=== PATIENT | female | born 1990 | race Caucasian/White ===

== ENCOUNTER 2019-03-08 16:06 | Inpatient (IN) | payer BC ==
[2019-03-08] MEDS ORDERED: Lidocaine 1% 30 ML SDV INJECT PRN (16:42)
[2019-03-08] MEDS ORDERED: Ondansetron 4 MG/2 ML SDV IV PRN (16:42)
[2019-03-08] MEDS ORDERED: Sodium Chloride 0.9% 10 ML Syringe FLUSH PRN (16:42)
[2019-03-08] MEDS ORDERED: Misoprostol 400 MCG (4 X 100 MCG TAB) RECTAL PRN (16:42)
[2019-03-08] MEDS ORDERED: Carboprost Tromethamine 250 MCG/1 ML Amp IM PRN (16:42)
[2019-03-08] MEDS ORDERED: Lactated Ringers 1,000 ML IV ONE (16:42)
[2019-03-08] MEDS ORDERED: Methylergonovine 0.2 MG/1 ML Amp IM PRN (16:42)
[2019-03-08] MEDS ORDERED: Acetaminophen 325 MG Tab PO PRN (16:42)
[2019-03-08] MEDS ORDERED: fentaNYL 100 MCG/2 ML SDV IVPUSH PRN (16:42)
[2019-03-08] MEDS ORDERED: Tranexamic Acid 1,000 MG in Sodium Chloride 0.9% 100 ML IV PRN (16:42)
[2019-03-08] MEDS ORDERED: Oxytocin/Normal Saline 30 UNIT/500 ML BAG IV SCH (16:45)
[2019-03-08] MEDS ORDERED: Nalbuphine 10 MG/1 ML Vial IM ONE (16:52)
[2019-03-08] MEDS: Lactated Ringers 1,000 ML IV SCH ×2 (18:19→18:46)
[2019-03-08] MEDS ORDERED: fentaNYL 100 MCG/2 ML SDV ONE (18:36)
[2019-03-08] MEDS ORDERED: EPINEPHrine 1 MG/1 ML Amp ONE (18:37)
--- NOTE | 2019-03-08 19:06 | PCM.PRNOTE ---
- Free Text/Narrative Note: Requested to provide analgesia to full term patient in severe pain. Upon entering the room, patient is sitting on edge of bed complaining of severe abdominal/pelvic pain and discomfort. Procedure was discussed with patient including adverse outcomes and expectations. Pt consented to analgesia, SAB/ IT. Pt placed into a proper sitting position. Landmarks for SAB/IT were identified and marked. Hands were washed and appropriate PPE was applied. Back was prepped with betadine x3. A sterile, transparent, fenestrated drape was applied. Excess betadine was removed. Using 3 mL of a 1% lidocaine solution , a skin wheel was placed at the L2/L3 interspace. A 24 ga (4 inch) Pencan spinal needle was inserted until positive for CSF. Negative for heme or paresthesias. Injected fentanyl 30 mcg, sufentanil 25 mcg, and 7.5 mg of a 0.75 % bupivacaine solution with an epi wash. Pt was placed left lateral position for approximately 20 minutes. There were zero complications or adverse outcomes. Will continue to monitor. Procedure Date & Time: 03/08/19 [id number]
[2019-03-08] MEDS ORDERED: Simethicone 80 MG Tab.Chew PO PRN (20:34)
[2019-03-08] MEDS ORDERED: Benzocaine/Menthol 20%-0.5% Spray 56 GM Canister TOP PRN (20:34)
--- NOTE | 2019-03-08 22:29 | HP ---
CHIEF COMPLAINT: Spontaneous rupture of membranes. HISTORY OF PRESENT ILLNESS: This is a 28-year-old, 4, para 1-0-2-1, currently at 38-3/7 weeks of her intrauterine based on last menstrual period, presents to Labor and Delivery reporting that she had just awoken from a nap and heard a pop, and when she got up to move around had continuous leakage of fluid and increase in the force and frequency of contractions that she had been having since yesterday. Time of rupture was at 3 o'clock in the afternoon and fluid was clear. Shortly thereafter regular stronger contractions ensued. She denies any vaginal bleeding. She has had good movement. No chest pain or shortness of breath. No headaches. No blurry vision. No change in her edema. No signs or symptoms of any illness or other problems since her last office visit last week. history: Nausea and vomiting in the first trimester. Spotting in the first trimester. History of miscarriage x2. labs: Blood type A positive, antibody screen negative, rubella immune, syphilis serology nonreactive, hepatitis B negative, HIV negative, gonorrhea and chlamydia negative, TSH 1.4, hepatitis C negative, wet prep was negative, group B strep negative, and glucose tolerance test normal at 100. Last hemoglobin 11.8 on 12/18/2018 and platelets 221. PAST MEDICAL HISTORY: 1. Prior abnormal Pap smear in 2002, negative followup since then. 2. History of asymptomatic PVCs. 3. History of needing bilateral hearing aid since age 4 due to a history of recurrent ear infections. 4. Chickenpox at an age 4. 5. Influenza A in March of 2018. 6. History of spontaneous x2. 7. History of malignant teratoma in 2004 followed by right oophorectomy. PAST SURGICAL HISTORY: 1. Right oophorectomy 05/05/2004. 2. Dilatation and curettage March 19, 2018. 3. Tonsillectomy at age 3. 4. [place] teeth extraction. FAMILY HISTORY: Mother is alive and well. Father is alive and had a heart attack at age 41 and has elevated cholesterol and is a former smoker. Brothers alive and well. Maternal grandmother , had hypertension, depression, and stroke. Maternal grandfather , had colon and lung cancer. Paternal grandmother is alive and had colon cancer diagnosed at age 79. Paternal grandfather is , had diabetes, 2 heart attacks, and heart failure. There is a family history of some syndactyly. Otherwise, no , multiples seizures, cystic fibrosis, bleeding, or clotting disorders, or anesthesia problems. SOCIAL HISTORY: The patient is a nonsmoker. She has had no drug or alcohol exposures during the . She and her Xavier recently built a new house [place] outside of town. 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 Xavier works as a dean and for the family's construction company. They have 1 son named Markell born on 07/03/2015. OBSTETRICAL HISTORY: 07/03/2015, 38 weeks 3 days' gestation at term, vacuum assisted vaginal delivery, baby weighing 3325 g. He is a male. She had arrest of labor at 8 cm for 4 hours and needed IUPC and Pitocin. There was a vacuum performed for maternal exhaustion and intolerance of labor. 09/26/2017, 9 weeks' gestation, spontaneous , managed with Cytotec. 03/19/2018, at 12 weeks and 4 days' gestation, spontaneous , and D and C was performed. MEDICATIONS: 1. vitamin 1 daily. 2. Iron 325 mg daily. ALLERGIES: No known drug allergies. REVIEW OF SYSTEMS: As per the history of present illness. No recent diarrhea, constipation, nausea, vomiting, fever, chills, skin rashes, headaches, blurry vision, or any other concerns. PHYSICAL EXAMINATION: Vital Signs: Temperature 97.6, pulse 88, blood pressure 97/58, respiratory rate of 16, and O2 saturations 99%. HEENT: Grossly unremarkable. NECK: Supple without adenopathy. HEART: Regular without murmur. LUNGS: Clear to auscultation bilaterally. ABDOMEN: Gravid, soft, and nontender. PELVIC: heart tones tracing 115 beats per minute at baseline. Moderate [id number]-cu-[id number] variability. Accelerations are noted. Lutz with contractions every 4 minutes. Cervical exam per the nurse was 5 to 6 cm, 80% effaced, 0 station. Clear fluid noted. EXTREMITIES: No edema, erythema, or tenderness noted. LABORATORY DATA: Hemoglobin is 13.7 and platelets 220. ASSESSMENT: 1. 38-3/7 weeks' intrauterine based on last menstrual period. 2. 4, para 1-0-2-1. 3. Anemia of . 4. History of malignant teratoma. 5. History of miscarriage x2, and history of first-trimester spotting. PLAN: Expectant management of labor. Can use Nubain or fentanyl or intrathecal for pain management as appropriate and desired by the patient. Change in plan will occur should there be any maternal or indications that should arise. The patient's questions have been answered. [facility] /[id number] FARIBA
[2019-03-08] MEDS: Ibuprofen 800 MG Tab PO PRN (22:43)
[2019-03-09] MEDS: Ferrous Sulfate 325 MG Tab PO SCH (08:15)
[2019-03-09] MEDS: Docusate Sodium 100 MG Cap PO PRN ×2 (08:15→21:02)
[2019-03-09] MEDS: Prenatal Multivitamin with Calcium/Folic Acid/Iron Tab PO SCH (08:15)
[2019-03-09] MEDS: Ibuprofen 800 MG Tab PO PRN ×2 (08:15→16:25)
--- NOTE | 2019-03-09 13:12 | PN ---
DATE: 03/09/2019 SUBJECTIVE: day #1, doing well, ambulating, tolerating regular diet, voiding without any difficulties. No chest pain or shortness of breath. No fever, chills. No foul-smelling drainage or discharge. Lochia has been normal. She is and that is going well. She is denying any acute concerns or complaints at this time. OBJECTIVE: Vital Signs: Temperature is 98.2, pulse 87, blood pressure 93/46, respiratory rate of 16, and O2 saturations 100% on room air. Heart: Regular without murmur. Lungs: Clear to auscultation bilaterally. Abdomen: Soft, nontender. Fundus is firm and below the umbilicus. Extremities: No edema, erythema, or tenderness noted. ASSESSMENT: 1. Postvaginal delivery day #1, doing well. 2. 4, now para 2-0-2-2, delivered at 38 and 3/7 weeks gestation. 3. Anemia of . 4. History of 2 miscarriages and history of malignant teratoma. PLAN: Anticipate routine postvaginal delivery cares and discharge home tomorrow. The patient has been happy with her care and does not have any questions at this time. [facility] /[id number]
[2019-03-10] MEDS: Ibuprofen 800 MG Tab PO PRN ×2 (01:37→09:38)
[2019-03-10] MEDS: Prenatal Multivitamin with Calcium/Folic Acid/Iron Tab PO SCH (08:13)
[2019-03-10] MEDS: Docusate Sodium 100 MG Cap PO PRN (08:13)
[2019-03-10] MEDS: Ferrous Sulfate 325 MG Tab PO SCH (08:13)
[2019-03-10 08:20] VITALS: BP 119/72; PULSE 86
[2019-03-10] MEDS ORDERED: fentaNYL 100 MCG/2 ML SDV ITHECAL ONE (10:44)
[2019-03-10] MEDS ORDERED: EPINEPHrine 1 MG/1 ML Amp ONE (10:44)
--- NOTE | 2019-03-10 16:18 | DISCH ---
ADMITTING DIAGNOSES: 1. 38 and 3/7 weeks intrauterine by last menstrual period. 2. 4, para 1-0-2-1. 3. Anemia of . 4. Blood type A positive, rubella immune, group B Strep negative. 5. First trimester bleeding. 6. History of spontaneous x2. 7. Hearing difficulties. 8. History of asymptomatic premature ventricular contractions. 9. History of malignant teratoma. 10.Spontaneous rupture of membranes. DISCHARGE DIAGNOSES: 1. 38 and 3/7 weeks intrauterine by last menstrual period. 2. 4, now para 2-0-2-2. 3. Anemia of . 4. Blood type A positive, rubella immune, group B Strep negative. 5. First trimester bleeding. 6. History of spontaneous x2. 7. Hearing difficulties. 8. History of asymptomatic premature ventricular contractions. 9. History of malignant teratoma. 10.Spontaneous rupture of membranes. 11.Status post spontaneous vaginal delivery with second-degree laceration repair. The patient has been doing well. BRIEF HISTORY: A 28-year-old female with the above-listed diagnoses, presented to the hospital after spontaneous rupture of membranes at home, and after about 4-1/2 hours of active labor, she went on to spontaneous vaginal delivery with pushing for only 10 minutes and sustained a second-degree laceration which was repaired with good result. Baby did well. score of 9 and 9, weight 3535 g, 7 pounds 13 ounces. HOSPITAL COURSE: Good. Mother has been breast-feeding without any difficulties. She is ambulating, tolerating regular diet, voiding without problems, passing flatus, and not yet had a bowel movement. Bleeding and pain have been well controlled. She has no other concerns. She feels ready for discharge home today. DISCHARGE CONDITION: Good. PHYSICAL EXAMINATION: Vital Signs: Temperature is 98.5, pulse 86, blood pressure 119/72, respiratory rate of 16, O2 saturations 99% on room air. Heart: Regular without murmur. Lungs: Clear to auscultation bilaterally. Abdomen: Soft, nontender. Positive bowel sounds. Fundus is firm and below the umbilicus. Extremities: No edema, erythema, or tenderness noted. LABORATORY DATA: Hemoglobin on admission was 13.3. Bleeding at delivery was not very much, so I am not rechecking the hemoglobin. DISPOSITION: Home with family. MEDICATIONS: Ibuprofen 800 mg every 8 hours as needed for pain, Tylenol 650 mg every 8 hours as needed for pain, vitamin continue 1 daily. FOLLOWUP: She will need a 6-week exam. I will also be rechecking on her when she brings the baby in for the 2-day and 2-week well-child visits. INSTRUCTIONS: Normal post vaginal delivery care instructions for mother provided and all of her questions were answered. She understands to return if she has any fever, chills, increased uterine tenderness, foul-smelling drainage, discharge, or any other concerns. [facility] /[id number]
--- NOTE | 2019-03-16 11:34 | DEL ---
DATE: 03/08/2019 PREPROCEDURE DIAGNOSES: 1. 38-3/7 weeks' intrauterine . 2. 4, para 1-0-2-1. 3. Anemia of . 4. History of malignant teratoma. 5. Spontaneous rupture of fluids earlier today. 6. Blood type A positive, rubella immune, group B strep negative. 7. First-trimester spotting. 8. History of spontaneous . 9. Hearing difficulty due to recurrent ear infections as a child. 10.History of asymptomatic premature ventricular contractions. POSTDELIVERY DIAGNOSES: 1. 38-3/7 weeks' intrauterine . 2. 4, para 2-0-2-2. 3. Anemia of . 4. History of malignant teratoma. 5. Spontaneous rupture of fluids earlier today. 6. Blood type A positive, rubella immune, group B strep negative. 7. First-trimester spotting. 8. History of spontaneous . 9. Hearing difficulty due to recurrent ear infections as a child. 10.History of asymptomatic premature ventricular contractions. 11.Status post spontaneous vaginal delivery with second-degree laceration repair. 12.Delivery of viable male infant; scores of 9 and 9; weight 3535 g, 7 pounds 13 ounces. BRIEF HISTORY: A 28-year-old female with the above-listed diagnoses, presented to the hospital with spontaneous rupture of membranes at home and active labor. She continued to labor while here in the hospital, received her intrathecal for pain management and then was allowed to labor down until we were ready to have her start pushing. She then pushed for about 10 minutes after being in active labor for about a total of 4.5 hours and had an uncomplicated vaginal delivery as below. Please see history and physical for full details of her predelivery course. DETAILS: With the patient in dorsal lithotomy position, she delivered a viable male infant in the OA position over intact perineum. Baby was dried, stimulated, and placed on mother's abdomen. Had a strong vigorous cry after a delay. Three-vessel umbilical cord was doubly clamped and cut and cord blood sample obtained. Placenta delivered by gentle cord traction and concomitant uterine massage. Labia, vagina inspected and there was a second-degree laceration which was repaired in the usual fashion with 3-0 Vicryl and no complications. The patient tolerated procedure well and did not require any additional anesthesia as her intrathecal was still working well. FINDINGS: Viable male ; scores 9 and 9; weight 3535 g, 7 pounds 13 ounces; length 19-3/4 inches. DISPOSITION: Mother and baby to stay in the room to start with [id number] and . ESTIMATED BLOOD LOSS: 250 mL. COMPLICATIONS: None. [facility] /[id number]
== END 2019-03-10 10:45 | disposition home or self-care (01) | DRG 560 ==
LOC: DL.OBCHECK 16:06 → DL.OB 16:35 → UNDOADMOB 16:35 → DL.OB 16:42 → OBSVTOIN 19:46
PROVIDERS: ADMIT Family Medicine; ATTEND Family Medicine
PROC: 10E0XZZ Delivery of Products of Conception, External Approach (ICD-10-PCS; principal; 2019-03-08)
PROC: 0KQM0ZZ Repair Perineum Muscle, Open Approach (ICD-10-PCS; 2019-03-08)
DX: O99.02 Anemia complicating childbirth (principal); D64.9 Anemia, unspecified; O70.1 Second degree perineal laceration during delivery; Z3A.38 38 weeks gestation of pregnancy; Z37.0 Single live birth
CPT/HCPCS: 36415; 59409; 85027; A9270-GY; J0171; J2300; J2405; J2590; J3010; J7120

== ENCOUNTER 2020-04-30 10:45 | Emergency (ER) | payer BC ==
--- NOTE | 2020-04-30 12:55 | EDM.PDOC ---
ED HPI GENERAL MEDICAL PROBLEM - General Stated Complaint: CHILLS, SHAKING, HEADACHE, LEFT BREAST PAIN Time Seen by Provider: 04/30/20 12:45 Source of Information: Reports: Patient History Limitations: Reports: No Limitations - History of Present Illness INITIAL COMMENTS - FREE TEXT/NARRATIVE: This 29 yo female patient reports to the ED with left breast pain, erythema and a fever. The patient reports she is currently breast feeding her 14 month old and thought she had a blocked duct yesterday which cleared. The patient then started to have chills (was wearing several pairs of pants, blankets and took a warm bath). This morning the patient repots increased left breast tenderness and erythema. Onset Date: 04/29/20 Duration: Constant, Getting Worse Location: Reports: Chest (left breast erythema, tenderness and pain) Quality: Reports: Other Severity: Moderate Improves with: Reports: None Worsens with: Reports: None Context: Reports: Other Associated Symptoms: Reports: No Other Symptoms Left Breast Pain Score (Numeric/FACES): 4 - Related Data Allergies Allergy/AdvReac Type Severity Reaction Status Date / Time amoxicillin Allergy Rash Verified 04/30/20 12:09 Past Medical History - Past Health History Medical/Surgical History: Denies Medical/Surgical History HEENT History: Reports: Hard of Hearing, Impaired Vision, Other (See Below) Other HEENT History: hearing aids for assistance Cardiovascular History: Reports: Arrhythmia, Other (See Below) Other Cardiovascular History: PVCs Respiratory History: Reports: None Gastrointestinal History: Reports: None Genitourinary History: Reports: None EXECUTIVE RECEPTIONIST History: Reports: , Spontaneous , Other (See Below) Musculoskeletal History: Reports: None Neurological History: Reports: None Psychiatric History: Reports: None Endocrine/Metabolic History: Reports: None Hematologic History: Reports: None Immunologic History: Reports: None Oncologic (Cancer) History: Reports: Ovarian Dermatologic History: Reports: None - Infectious Disease History Infectious Disease History: Reports: Chicken Pox - Past Surgical History Head Surgeries/Procedures: Reports: None HEENT Surgical History: Reports: Tonsillectomy Cardiovascular Surgical History: Reports: None Respiratory Surgical History: Reports: None GI Surgical History: Reports: None Female Surgical History: Reports: Oophorectomy, Other (See Below) Other Female Surgeries/Procedures: r) OVARY REMOVED Musculoskeletal Surgical History: Reports: None Social & Family History - Family History Family Medical History: Unobtainable Cardiac: Reports: Heart Failure, Prior Cardiac Arrest Respiratory: Reports: None GI: Reports: None Neurological: Reports: CVA Psychiatric: Reports: Depression Endocrine/Metabolic: Reports: Diabetes, type II Oncologic: Reports: Colon, Lung - Tobacco Use Tobacco Use Status *Q: Never Tobacco User Second Hand Smoke Exposure: No - Caffeine Use Caffeine Use: Reports: Coffee - Recreational Drug Use Recreational Drug Use: No ED ROS GENERAL - Review of Systems Review Of Systems: Comprehensive ROS is negative, except as noted in HPI. ED EXAM, SKIN/RASH Exam: See Below Exam Limited By: No Limitations General Appearance: Alert, WD/WN, No Apparent Distress Eye Exam: Bilateral Eye: EOMI, Normal Inspection, PERRL Ears: Normal External Exam, Normal Canal, Hearing Grossly Normal, Normal TMs Nose: Normal Inspection, Normal Mucosa, No Blood Throat/Mouth: Normal Inspection, Normal Lips, Normal Teeth, Normal Gums, Normal Oropharynx, Normal Voice, No Airway Compromise Neck: Normal Inspection, Supple, Non-Tender, Full Range of Motion Respiratory/Chest: No Respiratory Distress, Lungs Clear, Normal Breath Sounds, No Accessory Muscle Use, Chest Non-Tender Cardiovascular: Normal Peripheral Pulses, Regular Rate, Rhythm, No Edema, No Gallop, No JVD, No Murmur, No Rub GI/Abdominal: Normal Bowel Sounds, Soft, Non-Tender, No Organomegaly, No Distention, No Abnormal Bruit, No Mass (Female) Exam: Deferred Rectal (Female) Exam: Deferred Back Exam: Normal Inspection, Full Range of Motion, NT Extremities: Normal Inspection, Normal Range of Motion, Non-Tender, No Pedal Edema, Normal Capillary Refill Neurological: Alert, Oriented, CN II-XII Intact, Normal Cognition, Normal Gait, Normal Reflexes, No Motor/Sensory Deficits Psychiatric: Normal Affect, Normal Mood Skin: Erythema, Increased Warmth Location, Skin: Chest (left breast) Characteristics: Erythematous Associated features: Warmth, Tenderness, Swelling Lymphatic: No Adenopathy Course - Vital Signs Last Recorded V/S: Last Vital Signs Temp 36.8 C 04/30/20 12:04 Pulse 97 04/30/20 12:04 Resp 16 04/30/20 12:04 BP 101/58 L 04/30/20 12:04 Pulse Ox 98 04/30/20 12:04 Departure - Departure Time of Disposition: 12:56 Disposition: Home, Self-Care 01 Condition: Fair Clinical Impression: Mastitis in female - Discharge Information *PRESCRIPTION DRUG MONITORING PROGRAM REVIEWED*: Not Applicable *COPY OF PRESCRIPTION DRUG MONITORING REPORT IN PATIENT LASHANDA: Not Applicable Instructions: Mastitis, [id number], and Mastitis Forms: ED Department Discharge Care Plan Goals: The patient was advised of the examination results during the visit. The patient was discharged with a script for Keflex (500 mg) #40 to take 1 by mouth 4 times per day for 10 days. The patient was encouraged to follow-up with her primary care facility next week. If the patient has any additional symptoms or concerns, the patient should either return to the emergency department or visit her primary care facility. Sepsis Event Note (ED) - Evaluation Sepsis Screening Result: Possible Sepsis Risk - Focused Exam Vital Signs: Vital Signs Temp Pulse Resp BP Pulse Ox 04/30/20 12:04 36.8 C 97 16 101/58 L 98
== END 2020-04-30 13:03 | disposition home or self-care (01) ==
LOC: DL.ED 10:45
CPT/HCPCS: 99283